=== PATIENT | male | born 1985 | race Caucasian/White ===

== ENCOUNTER 2023-01-27 14:10 | Inpatient (IN) | payer OTHER ==
[~2023-01-27] VITALS: Ht 172.7 cm; Wt 61.4 kg
[2023-01-27 15:50] VITALS: PULSE 56; RESP 18
[2023-01-27] MEDS ORDERED: ACETAMINOPHEN 325MG TABLET PO PRN (16:00)
[2023-01-27] MEDS ORDERED: ATROPINE SULFATE 1MG/10ML SYR IV PRN (16:00)
[2023-01-27] MEDS ORDERED: VASOPRESSIN 20 UNIT in SODIUM CHLORIDE 0.9% 99 ML IV PRN (16:15)
[2023-01-27] MEDS ORDERED: DEXTROSE 5% WATER 1,000 ML IV SCH (16:15)
[2023-01-27] MEDS ORDERED: PHENYLEPHRINE 100 MG in DEXT 5% WATER 240 ML IV PRN (16:15)
[2023-01-27 17:40] VITALS: PULSE 60; RESP 18
== END 2023-01-27 21:30 | DRG 52 ==
LOC: CVICU 14:10
PROC: 4A023N6 Measurement of Cardiac Sampling and Pressure, Right Heart, Percutaneous Approach (ICD-10-PCS; principal; 2023-01-27)
PROC: B2111ZZ Fluoroscopy of Multiple Coronary Arteries using Low Osmolar Contrast (ICD-10-PCS; 2023-01-27)
PROC: 30233N1 Transfusion of Nonautologous Red Blood Cells into Peripheral Vein, Percutaneous Approach (ICD-10-PCS; 2023-01-27)
CPT/HCPCS: 36415; 86850; 86900; 86920; 94003; C1726; P9016